=== PATIENT | male | born 1980 | race Two or more races ===

== ENCOUNTER 2021-01-13 12:01 | Inpatient (IN) | payer OTHER ==
[2021-01-13 12:45] VITALS: BMI 19.8
[2021-01-13] MEDS ORDERED: cloNIDine HCL 0.1 MG TABLET PO PRN (13:38)
[2021-01-13] MEDS ORDERED: methaDONE HCL 10 MG TABLET (FOR DETOX USE ONLY) PO ONE (13:38)
[2021-01-13] MEDS ORDERED: MAGNESIUM CITRATE 300 ML BOTTLE PO PRN (13:38)
[2021-01-13] MEDS ORDERED: MAG HYDROX/AL HYDROX/SIMETH 30 ML UNIT-DOSE CUP PO PRN (13:38)
[2021-01-13] MEDS ORDERED: BISMUTH SUBSALICYLATE 524 MG/30 ML PO PRN (13:38)
[2021-01-13] MEDS ORDERED: ACETAMINOPHEN 325 MG TABLET (FP) PO PRN ×2 (13:38)
[2021-01-13] MEDS ORDERED: MAGNESIUM HYDROX 2400MG/30ML ORAL SUSPENSION 30 ML CUP PO PRN (13:38)
[2021-01-13] MEDS ORDERED: IBUPROFEN 400 MG TABLET (FP) PO PRN (13:38)
[2021-01-13] MEDS ORDERED: ONDANSETRON *ODT* 4 MG TABLET SL PRN (13:38)
[2021-01-13] MEDS ORDERED: MENTHOL/PHENOL 1 EACH UD MM PRN (13:38)
[2021-01-13] MEDS ORDERED: methaDONE HCL 10 MG TABLET (FOR DETOX USE ONLY) ONE (15:32)
[2021-01-13] MEDS ORDERED: hydrOXYzine PAMOATE 25 MG CAPSULE (FP) PO ONE (15:33)
[2021-01-13] MEDS: hydrOXYzine PAMOATE 25 MG CAPSULE (FP) PO SCH ×3 (15:38→22:17)
[2021-01-13] MEDS: diazePAM 5 MG TABLET PO PRN (22:17)
[2021-01-13] MEDS: THIAMINE HCL 100 MG TABLET (FP) PO SCH (22:17)
[2021-01-13] MEDS: MELATONIN 5 MG TABLETS PO SCH (22:17)
[2021-01-14] MEDS: hydrOXYzine PAMOATE 25 MG CAPSULE (FP) PO SCH ×5 (07:50→22:46)
[2021-01-14] MEDS ORDERED: methaDONE HCL 10 MG TABLET (FOR DETOX USE ONLY) ONE (08:39)
[2021-01-14] MEDS: diazePAM 5 MG TABLET PO PRN ×4 (10:30→22:48)
[2021-01-14] MEDS: PRENATAL VITAMINS W/ FOLIC ACID TABLET (FP) PO SCH (10:32)
[2021-01-14 18:29] LABS: HEMATOCRIT 22.6 % (35.4-49); MCH 20.1 pg (25.7-33.7); MCHC 30.8 g/dl (32.0-35.9); MEAN CELL VOLUME 65.1 fl (80-96); MEAN PLT VOLUME 7.8 fl (7.5-11.1); PLATELET COUNT 351 10^3/uL (134-434); RBC 3.47 M/mm3 (4.00-5.60); RDW 18.6 % (11.9-15.9); WHITE BLOOD COUNT 4.6 K/mm3 (4.0-10.0)
[2021-01-14] MEDS: METHOCARBAMOL 500 MG TABLET PO PRN (18:37)
[2021-01-14] MEDS: MELATONIN 5 MG TABLETS PO SCH (22:46)
[2021-01-14] MEDS: THIAMINE HCL 100 MG TABLET (FP) PO SCH (22:46)
[2021-01-15] MEDS: diazePAM 5 MG TABLET PO PRN ×4 (04:32→22:34)
[2021-01-15] MEDS: METHOCARBAMOL 500 MG TABLET PO PRN ×3 (04:32→17:47)
[2021-01-15] MEDS: hydrOXYzine PAMOATE 25 MG CAPSULE (FP) PO SCH ×5 (06:37→22:32)
[2021-01-15] MEDS ORDERED: methaDONE HCL 10 MG TABLET (FOR DETOX USE ONLY) PO ONE (10:00)
[2021-01-15] MEDS: PRENATAL VITAMINS W/ FOLIC ACID TABLET (FP) PO SCH (10:37)
[2021-01-15] MEDS: MELATONIN 5 MG TABLETS PO SCH (22:32)
[2021-01-15] MEDS: THIAMINE HCL 100 MG TABLET (FP) PO SCH (22:35)
[2021-01-16] MEDS: diazePAM 5 MG TABLET PO PRN ×2 (03:26→08:02)
[2021-01-16] MEDS: METHOCARBAMOL 500 MG TABLET PO PRN ×2 (03:26→10:43)
[2021-01-16] MEDS: hydrOXYzine PAMOATE 25 MG CAPSULE (FP) PO SCH (06:47)
[2021-01-16] MEDS ORDERED: methaDONE HCL 10 MG TABLET (FOR DETOX USE ONLY) ONE (09:59)
[2021-01-16] MEDS: PRENATAL VITAMINS W/ FOLIC ACID TABLET (FP) PO SCH (10:42)
[2021-01-16] MEDS: hydrOXYzine PAMOATE 25 MG CAPSULE (FP) PO PRN ×2 (10:43→17:35)
[2021-01-16 15:02] LABS: HEMATOCRIT 27.4 % (35.4-49); HEMOGLOBIN 8.4 GM/dL (11.7-16.9); MCH 19.9 pg (25.7-33.7); MCHC 30.7 g/dl (32.0-35.9); MEAN CELL VOLUME 64.9 fl (80-96); MEAN PLT VOLUME 7.8 fl (7.5-11.1); PLATELET COUNT 480 10^3/uL (134-434); RBC 4.22 M/mm3 (4.00-5.60); WHITE BLOOD COUNT 4.7 K/mm3 (4.0-10.0)
[2021-01-16 15:07] LABS: CALCIUM 9.1 mg/dL (8.5-10.1)
[2021-01-16 15:09] LABS: BLOOD UREA NITROGEN 12.8 mg/dL (7-18)
[2021-01-16 15:11] LABS: ALBUMIN 2.6 g/dl (3.4-5.0); CREATININE 0.7 mg/dL (0.55-1.3)
[2021-01-16 15:12] LABS: BILIRUBIN,TOTAL 0.2 mg/dL (0.2-1); TOT PROT 7.8 g/dl (6.4-8.2)
[2021-01-16] MEDS ORDERED: DIVALPROEX SODIUM 500 MG TABLET E.C. PO SCH (22:00)
[2021-01-16] MEDS ORDERED: SUVOREXANT 10 MG TABLET PO PRN (22:00)
[2021-01-16] MEDS: THIAMINE HCL 100 MG TABLET (FP) PO SCH (22:16)
[2021-01-16] MEDS: DIVALPROEX SODIUM 250 MG TABLET E.C. PO SCH (22:16)
[2021-01-16] MEDS: MELATONIN 5 MG TABLETS PO SCH (22:17)
[2021-01-17] MEDS: hydrOXYzine PAMOATE 25 MG CAPSULE (FP) PO PRN (09:26)
[2021-01-17] MEDS: DIVALPROEX SODIUM 250 MG TABLET E.C. PO SCH (09:26)
[2021-01-17] MEDS: METHOCARBAMOL 500 MG TABLET PO PRN (09:27)
[2021-01-17] MEDS: PRENATAL VITAMINS W/ FOLIC ACID TABLET (FP) PO SCH (09:28)
[2021-01-17] MEDS ORDERED: methaDONE HCL 10 MG TABLET (FOR DETOX USE ONLY) PO ONE (10:00)
[2021-01-17] MEDS ORDERED: diazePAM 5 MG TABLET PO PRN (12:30)
[2021-01-17] MEDS ORDERED: FERROUS SO4 325 MG TABLET (FP) PO SCH (12:30)
[2021-01-17 13:14] VITALS: BP 130/72; PULSE 64; TEMP 96.2
== END 2021-01-17 13:51 | disposition home or self-care (01) | DRG 773 ==
LOC: YASAS 12:01 → Y3N 16:01
PROVIDERS: ADMIT Allergy & Immunology; ATTEND Allergy & Immunology
PROC: HZ2ZZZZ Detoxification Services for Substance Abuse Treatment (ICD-10-PCS; principal; 2021-01-13)
DX: F11.23 Opioid dependence with withdrawal (principal); F14.20 Cocaine dependence, uncomplicated; F32.9 Major depressive disorder, single episode, unspecified; F19.24 Other psychoactive substance dependence with psychoactive substance-induced mood disorder; D64.9 Anemia, unspecified; K50.90 Crohn's disease, unspecified, without complications; R63.4 Abnormal weight loss; Z68.1 Body mass index [BMI] 19.9 or less, adult; Z87.891 Personal history of nicotine dependence
CPT/HCPCS: 36415; 80053; 80164; 85027; 86780; 93005; 93010; C9803; U0003; U0005